=== PATIENT | female | born 1990 ===

== ENCOUNTER 2017-04-13 20:02 | Emergency (ER) | payer BC ==
[2017-04-13 20:14] VITALS: TEMP 98.2
[2017-04-13 20:47] LABS: RBC URINE 20 /hpf (0-3); URINE BILIRUBIN NEGATIVE (NEGATIVE); URINE BLOOD 2+ (NEGATIVE); URINE COLOR Yellow (YELLOW); URINE GLUCOSE (UA) NORMAL (Normal); URINE KETONE NEGATIVE (NEGATIVE); URINE LEUKOCYTE ESTERASE 3+ Leu/uL (Negative); URINE PROTEIN NEGATIVE (NEGATIVE); URINE UROBILINOGEN NORMAL mg/dL (0.2-1.0); WBC URINE 37 /hpf (0-5)
--- NOTE | 2017-04-13 20:48 | C.PDOC ---
History Of Present Illness 26 y/o F at 5 weeks gestation p/w vaginal spotting earlier today. Denies fever, dysuria, pain, vomiting. Has not had US for this . Time Seen by Provider: 04/13/17 20:41 Chief Complaint (Nursing): Female Genitourinary Past Medical History Vital Signs: Last Vital Signs Temp 98.2 F 04/13/17 20:09 Pulse 112 H 04/13/17 20:09 Resp 20 04/13/17 20:09 BP 124/84 04/13/17 20:09 Pulse Ox 100 04/13/17 21:25 Family History: States: No Known Family Hx - Social History Hx Alcohol Use: No Hx Substance Use: No - Immunization History Hx Tetanus Toxoid Vaccination: No Hx Influenza Vaccination: No Hx Pneumococcal Vaccination: No Review Of Systems Except As Marked, All Systems Reviewed And Found Negative. Constitutional: Negative for: Fever Respiratory: Negative for: Shortness of Breath Physical Exam - Physical Exam Additional Physical Exam Comments: Constitutional: No acute distress. Head: Normocephalic. Atraumatic. Eyes: PERRL. EOMI. ENT: Moist mucous membranes. Neck: Supple. Cardiovascular: Regular rate. Radial pulses 2+ bilaterally. Chest: No tenderness. Respiratory: Clear to auscultation bilaterally. GI: Soft. Nontender. Nondistended. Back: No CVA tenderness. Musculoskeletal: No tenderness or swelling of extremities. Skin: No rash. Neurologic: Alert, no focal deficit. ED Course And Treatment - Laboratory Results Result Diagrams: 04/13/17 20:59 04/13/17 20:59 O2 Sat by Pulse Oximetry: 100 Against Medical Advice - AMA Patient Left Against Medical Advice: The patient declines admission to the hospital and wishes to leave the Emergency Department. This action is against my medical advice. This decision was made with informed refusal. The patient was told that admission to the hospital is necessary. Explanation of the reasons why were discussed. The risks of leaving were explained to the patient and include, but are not limited to, worsening of known or currently unknown conditions, permanent disability and from undiagnosed or untreated conditions. The patient has the capacity to make this informed decision and understands my explanation of the current medical problem and risks of leaving. The patient voluntarily accepts these risks and signed an AMA form documenting our conversation. The patient was given the opportunity to ask questions and reconsider. The patient was encouraged to return to the Emergency Department at any time for further care. Medical Decision Making Medical Decision Making: UA shows blood and positive leuks and WBCs. Will start on Macrobid. Patient refused transvaginal US. Transadominal US: FINDINGS: Uterus/cervix: Unremarkable normal in echogenicity and size measuring 7.0 x 4.5 x 5.3 cm. The endometrial stripe measures 19 mm. No myometrial mass. The cervix measures 3 cm , and is closed. Right ovary: Unremarkable in echogenicity and size measuring 2.8 x 2.1 x 2.7 cm. No mass. Normal blood flow. An anechoic focus is detected within the right ovary measuring 16 mm in greatest dimension, statistically a cyst. Left ovary: Unremarkable in echogenicity and size measuring 3.2 x 2.5 x 1.6 cm. No mass. Normal blood flow. Free fluid: No free fluid. Patient refused transvaginal evaluation. IMPRESSION: No intrauterine gestation is detected on the limited transabdominal examination. Simple cyst within the right ovary. Blood type +. Discussed risks of refusing transvaginal US including unknown ectopic and risk of or permanent disability. Patient understood and wishes to refuse and will leave ED. Disposition - Disposition Disposition: AGAINST MEDICAL ADVICE Disposition Time: 23:44 Condition: STABLE Prescriptions: Nitrofurantoin Macrocrystals [Macrobid] 100 mg PO BID #20 cap Instructions: Threatened Miscarriage (ED), Urinary Tract Infection in (ED) Forms: [facility] (Surinamese), (AMA) Informed Refusal - Clinical Impression Clinical Impression: Vaginal bleeding in , UTI in
[2017-04-13 21:13] LABS: BASO # 0.1 K/uL (0.0-0.2); BASO % 0.8 % (0.0-2.0); EOS # 0.2 K/uL (0.0-0.7); EOS % 1.7 % (0.0-4.0); HEMATOCRIT 34.6 % (34.0-47.0); LYMPH % 18.4 % (20.0-40.0); MEAN CELL VOLUME 72.4 fL (81.0-99.0); MEAN CORPUSCULAR HEMOGLOBIN 23.9 pg (27.0-31.0); MEAN PLATELET VOLUME 8.9 fL (7.2-11.7); MONO # 0.8 K/uL (0.0-0.8); MONO % 7.8 % (0.0-10.0); RED CELL DISTRIBUTION WIDTH 18.7 % (11.5-14.5); WHITE BLOOD COUNT 10.7 K/uL (4.8-10.8)
[2017-04-13 21:16] LABS: CHLORIDE 100 mmol/L (98-107)
[2017-04-13 21:17] LABS: RBC URINE 21 /hpf (0-3); URINE BACTERIA FEW (<OCC); URINE BILIRUBIN NEGATIVE (NEGATIVE); URINE BLOOD 2+ (NEGATIVE); URINE COLOR Yellow (YELLOW); URINE GLUCOSE (UA) NORMAL (Normal); URINE KETONE NEGATIVE (NEGATIVE); URINE LEUKOCYTE ESTERASE 2+ Leu/uL (Negative); URINE PROTEIN NEGATIVE (NEGATIVE); URINE UROBILINOGEN NORMAL mg/dL (0.2-1.0); WBC URINE 17 /hpf (0-5)
[2017-04-13 21:17] LABS: POTASSIUM 4.1 mmol/L (3.6-5.2); SODIUM 135 mmol/L (132-148)
[2017-04-13 21:19] LABS: ALB/GLOB RATIO 1.2 (1.0-2.1); AST/SGOT 27 U/L (14-36); BILIRUBIN,TOTAL 0.5 mg/dL (0.2-1.3); BLOOD UREA NITROGEN 11 mg/dL (7-17); CARBON DIOXIDE 21 mmol/L (22-30); GFR AFRICAN-AMERICAN > 60; TOTAL PROTEIN 8.5 g/dL (6.3-8.3)
[2017-04-13 21:20] LABS: ALKALINE PHOSPHATASE 47 U/L (38-126); ALT/SGPT 26 U/L (9-52); CALCIUM 9.5 mg/dl (8.6-10.4); GLUCOSE,RANDOM 84 mg/dL (65-105)
[2017-04-14 00:11] VITALS: BP 128/72; PULSE 81; RESP 18; O2SAT 99
--- NOTE | 2017-04-14 04:06 | US ---
EXAM: US Pelvis Complete, Transabdominal CLINICAL HISTORY: 26 years old, female; Signs and symptoms; Other: Vag spotting; Patient HX: Beta not available; Additional info: Vag bleeding in , assess cervix TECHNIQUE: Real-time transabdominal pelvic ultrasound (complete) with image documentation. COMPARISON: No relevant prior studies available. FINDINGS: Uterus/cervix: Unremarkable normal in echogenicity and size measuring 7.0 x 4.5 x 5.3 cm. The endometrial stripe measures 19 mm. No myometrial mass. The cervix measures 3 cm, and is closed. Right ovary: Unremarkable in echogenicity and size measuring 2.8 x 2.1 x 2.7 cm. No mass. Normal blood flow. An anechoic focus is detected within the right ovary measuring 16 mm in greatest dimension, statistically a cyst. Left ovary: Unremarkable in echogenicity and size measuring 3.2 x 2.5 x 1.6 cm. No mass. Normal blood flow. Free fluid: No free fluid. Patient refused transvaginal evaluation. IMPRESSION: No intrauterine gestation is detected on the limited transabdominal examination. Simple cyst within the right ovary.
== END 2017-04-13 23:55 | disposition left against medical advice (07) ==
LOC: C.ER 20:02
DX: O23.41 Unspecified infection of urinary tract in pregnancy, first trimester (principal); O46.91 Antepartum hemorrhage, unspecified, first trimester; Z3A.01 Less than 8 weeks gestation of pregnancy

== ENCOUNTER 2017-04-27 11:46 | Emergency (ER) | payer BC ==
[2017-04-27 11:52] VITALS: RESP 18; BMI 27.2
[2017-04-27] MEDS ORDERED: Sodium Chloride 0.9% 500 ML IV ONE (12:23)
[2017-04-27 12:52] LABS: BASO % 0.5 % (0.0-2.0); EOS # 0.3 K/uL (0.0-0.7); HEMATOCRIT 34.8 % (34.0-47.0); LYMPH # 1.8 K/uL (1.0-4.3); LYMPH % 17.3 % (20.0-40.0); MEAN CELL VOLUME 74.2 fL (81.0-99.0); MEAN CORPUSCULAR HEMOGLOBIN 24.5 pg (27.0-31.0); MEAN CORPUSCULAR HGB CONC 33.1 g/dL (33.0-37.0); MONO # 0.9 K/uL (0.0-0.8); MONO % 8.3 % (0.0-10.0); RED CELL DISTRIBUTION WIDTH 18.5 % (11.5-14.5); WHITE BLOOD COUNT 10.3 K/uL (4.8-10.8)
[2017-04-27 12:59] LABS: RBC URINE 5 /hpf (0-3); URINE BACTERIA RARE (<OCC); URINE BILIRUBIN NEGATIVE (NEGATIVE); URINE BLOOD 1+ (NEGATIVE); URINE COLOR Straw (YELLOW); URINE GLUCOSE (UA) NORMAL (Normal); URINE KETONE NEGATIVE (NEGATIVE); URINE LEUKOCYTE ESTERASE NEG Leu/uL (Negative); URINE PROTEIN NEGATIVE (NEGATIVE); URINE UROBILINOGEN NORMAL mg/dL (0.2-1.0); WBC URINE 1 /hpf (0-5)
[2017-04-27 13:01] LABS: CHLORIDE 101 mmol/L (98-107); POTASSIUM 3.8 mmol/L (3.6-5.2); SODIUM 134 mmol/L (132-148)
[2017-04-27 13:03] LABS: ALB/GLOB RATIO 1.1 (1.0-2.1); BILIRUBIN,TOTAL 0.4 mg/dL (0.2-1.3); CARBON DIOXIDE 23 mmol/L (22-30); GFR AFRICAN-AMERICAN > 60; TOTAL PROTEIN 8.5 g/dL (6.3-8.3)
[2017-04-27 13:04] LABS: ALKALINE PHOSPHATASE 47 U/L (38-126); ALT/SGPT 30 U/L (9-52); AST/SGOT 21 U/L (14-36); BLOOD UREA NITROGEN 4 mg/dL (7-17); CALCIUM 9.8 mg/dl (8.6-10.4); GLUCOSE,RANDOM 82 mg/dL (65-105)
--- NOTE | 2017-04-27 13:10 | C.PDOC ---
History Of Present Illness 26 year old female A1 7 weeks presents to the ED with complaints of "clear red" vaginal discharge, pelvic pain, and nausea beginning this morning. Pt has similar symptoms last week which she was evaluated for in the ED , no seen and symptoms resolved until today. Patient was seen by catalogue librarian 4 days ago, was diagnosed with Vaginitis and prescribed Flagyl. She denies hematuria, dysuria, fever, back pain, or vomiting. 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 denies: Fever, Chills, Vomiting, Diarrhea, Urinary Symptoms Alleviating Factors: None Recent travel outside of the [place]: No Abnormal Vaginal Bleeding: No : 2 Para: 0 Miscarriage: 1 Past Medical History Reviewed: Historical Data, Nursing Documentation, Vital Signs Vital Signs: Last Vital Signs Temp 98 F 04/27/17 14:41 Pulse 88 04/27/17 14:41 Resp 18 04/27/17 14:41 BP 132/84 04/27/17 14:41 Pulse Ox 98 04/27/17 14:41 Family History: States: Unknown Family Hx - Social History Hx Alcohol Use: No Hx Substance Use: No - Immunization History Hx Tetanus Toxoid Vaccination: No Hx Influenza Vaccination: No Hx Pneumococcal Vaccination: No Review Of Systems Constitutional: Negative for: Fever, Chills Gastrointestinal: Positive for: Nausea. Negative for: Vomiting, Diarrhea Genitourinary: Positive for: Vaginal Discharge, Pelvic Pain. Negative for: Dysuria, Hematuria Physical Exam - Physical Exam Appears: Non-toxic, No Acute Distress Skin: Warm, Dry Head: Atraumatic, Normacephalic Eye(s): bilateral: Normal Inspection, EOMI Oral Mucosa: Moist Neck: Normal ROM, Supple Chest: Symmetrical Cardiovascular: Rhythm Regular Respiratory: No Rales, No Rhonchi, No Wheezing, Other (Clear to auscultation bilaterally ) Gastrointestinal/Abdominal: Soft, No Tenderness, No Distention, No Guarding, No Rebound Pelvic: Vaginal Discharge (yellow clear discharge ), No Cervical Motion Tenderness, No Adnexal Tenderness Extremity: Normal ROM, No Tenderness Neurological/Psych: Oriented x3, Normal Speech ED Course And Treatment - Laboratory Results Result Diagrams: 04/27/17 12:46 04/27/17 12:46 O2 Sat by Pulse Oximetry: 100 (RA) - CT Scan/US Transvaginal US Other Rad Studies (CT/US): Read By Radiologist, Radiology Report Reviewed CT/US Interpretation: Findings: Uterus: 10.7 x 5.7 x 7.5 centimeters. Anteverted. Heterogeneous echotexture. Cervix measures 3.6 centimeters. Intrauterine with intrauterine gestational sac measuring 2.7 centimeters corresponding to a gestational age of 7 weeks and 3 days. Yolk sac measures 2.2 millimeters. An[place]-rump length measures 1.1 centimeters corresponding to a gestational age of 7 weeks and 1 day. heart rate of 128 beats per minute. No free fluid in the pelvic cul-de-sac. Right ovary: 3.2 x 2.7 x 3.5 centimeters. Normal flow. Left ovary: 3.6 x 1.6 x 3.3 centimeters. Normal flow. Impression: Intrauterine corresponding to a gestational age of approximately 7 weeks and 1 day with crown-rump length of 1.1 centimeters. heart rate of 128 beats per minute. Limited 1st trimester ultrasound for viability purposes only. Continued interval followup with serial ultrasound, serial hCG levels, and gynecological consultation would be helpful if clinically indicated. Progress Note: Labs and transvaginal US were ordered. Patient was given IV fluids. Upon re-evaluation, results were communicated to patient and she was given a copy. Patient instructed to follow up with ANALOG DEVICE DESIGNER in scheduled appointment in two days. Disposition - Disposition Disposition: HOME/ ROUTINE Disposition Time: 14:24 Condition: STABLE Additional Instructions: Vaya a trammell mdico o la clnica en 2-5 lakhani sin falta, para mas evaluacin. [place]heim los medicamentos tian indicado. Volver a la yasir de emergencia en cualquier momento si los sntomas persisten o empeoran. Instructions: (ED) Forms: [employer] (Danish) - Clinical Impression Clinical Impression: First trimester bleeding - PA / PERCUSSION TEACHER / Resident Statement MD/DO has reviewed & agrees with the documentation as recorded. - Scribe Statement The provider has reviewed the documentation as recorded by the Scribe Yulissa Page All medical record entries made by the Scribe were at my direction and personally dictated by me. I have reviewed the chart and agree that the record accurately reflects my personal performance of the history, physical exam, medical decision making, and the department course for this patient. I have also personally directed, reviewed, and agree with the discharge instructions and disposition.
--- NOTE | 2017-04-27 14:17 | US ---
Pelvic ultrasound History: Pelvic pain. Comparison: None available. Technique: Real-time sonography was performed through the pelvis utilizing transabdominal technique. Findings: Uterus: 10.7 x 5.7 x 7.5 centimeters. Anteverted. Heterogeneous echotexture. Cervix measures 3.6 centimeters. Intrauterine with intrauterine gestational sac measuring 2.7 centimeters corresponding to a gestational age of 7 weeks and 3 days. Yolk sac measures 2.2 millimeters. [place]-rump length measures 1.1 centimeters corresponding to a gestational age of 7 weeks and 1 day. heart rate of 128 beats per minute. No free fluid in the pelvic cul-de-sac. Right ovary: 3.2 x 2.7 x 3.5 centimeters. Normal flow. Left ovary: 3.6 x 1.6 x 3.3 centimeters. Normal flow. Impression: Intrauterine corresponding to a gestational age of approximately 7 weeks and 1 day with crown-rump length of 1.1 centimeters. heart rate of 128 beats per minute. Limited 1st trimester ultrasound for viability purposes only. Continued interval followup with serial ultrasound, serial hCG levels, and gynecological consultation would be helpful if clinically indicated.
[2017-04-27 14:42] VITALS: BP 132/84; PULSE 88; TEMP 98
[2017-04-27 15:32] VITALS: O2SAT 100
== END 2017-04-27 14:42 | disposition home or self-care (01) ==
LOC: C.ER 11:46
DX: O20.9 Hemorrhage in early pregnancy, unspecified (principal); Z3A.01 Less than 8 weeks gestation of pregnancy

== ENCOUNTER 2017-06-12 16:59 | Emergency (ER) | payer BC ==
[2017-06-12 17:00] VITALS: BMI 27.2
[2017-06-12 17:26] VITALS: RESP 16; TEMP 98
[2017-06-12 18:20] LABS: RBC URINE 2 /hpf (0-3); URINE BACTERIA FEW (<OCC); URINE BILIRUBIN NEGATIVE (NEGATIVE); URINE BLOOD NEGATIVE (NEGATIVE); URINE COLOR Yellow (YELLOW); URINE GLUCOSE (UA) NORMAL (Normal); URINE KETONE NEGATIVE (NEGATIVE); URINE LEUKOCYTE ESTERASE 2+ Leu/uL (Negative); URINE PROTEIN NEGATIVE (NEGATIVE); URINE UROBILINOGEN NORMAL mg/dL (0.2-1.0); WBC URINE 24 /hpf (0-5)
--- NOTE | 2017-06-12 18:23 | C.PDOC ---
History Of Present Illness 26 y/o female with PMHx of Chlamydia presents to ED with complaints of yellow vaginal discharge and pain after urinating fro 2 days. Patient is currently 14 weeks and denies abdominal pain, diarrhea, vaginal bleeding or any other complaints at this time. LMP 03/06/17. pt told she had bv at beginning of with unclear tx. Time Seen by Provider: 06/12/17 18:19 Chief Complaint (Nursing): Female Genitourinary History Per: Patient History/Exam Limitations: no limitations Onset/Duration Of Symptoms: Days Current Symptoms Are (Timing): Still Present Past Medical History Reviewed: Historical Data, Nursing Documentation, Vital Signs Vital Signs: Last Vital Signs Temp 98 F 06/12/17 17:23 Pulse 91 H 06/12/17 17:23 Resp 16 06/12/17 17:23 BP 110/70 06/12/17 17:23 Pulse Ox 99 06/12/17 18:52 - Medical History PMH: No Chronic Diseases Surgical History: No Surg Hx Family History: States: No Known Family Hx - Social History Hx Alcohol Use: No Hx Substance Use: No - Immunization History Hx Tetanus Toxoid Vaccination: No Hx Influenza Vaccination: No Hx Pneumococcal Vaccination: No Review Of Systems Constitutional: Negative for: Fever, Chills Gastrointestinal: Negative for: Nausea, Vomiting, Abdominal Pain Genitourinary: Positive for: Vaginal Discharge. Negative for: Dysuria, Hematuria, Vaginal Bleeding Skin: Negative for: Rash Physical Exam - Physical Exam Appears: Non-toxic, No Acute Distress Skin: Normal Color, Warm, Dry, No Rash Head: Atraumatic, Normacephalic Eye(s): bilateral: Normal Inspection Oral Mucosa: Moist Neck: Normal ROM, Supple Cardiovascular: Rhythm Regular Respiratory: Normal Breath Sounds, No Rales, No Rhonchi, No Wheezing Gastrointestinal/Abdominal: Soft, No Tenderness, No Guarding, No Rebound Pelvic: No Vaginal Bleeding, Vaginal Discharge (Large amount of yellow), No Cervical Motion Tenderness, No Adnexal Tenderness Neurological/Psych: Oriented x3 ED Course And Treatment O2 Sat by Pulse Oximetry: 99 (RA) Pulse Ox Interpretation: Normal Medical Decision Making Medical Decision Making: pt with yellowish vaginal d/c, swabbed for gc/chlamydia nd genital culture, no ab pain, no vag bleeding., no cmt or adnexal tenderness on exam. +2 le in urine , will tx for uti, f.u clinic andrew to follow cultures Disposition Counseled Patient/Family Regarding: Studies Performed, Diagnosis, Need For Followup, Rx Given - Disposition Referrals: [facility] [Outside] Disposition: HOME/ ROUTINE Disposition Time: 19:01 Condition: STABLE Additional Instructions: Por favor, david un seguimiento en la clnica de ginecologa de [place] vidales pronto tian sea posible para hacer un seguimiento de las culturas. Meckling antibi ticos para las infecciones de orina segn lo prescrito. Regrese a la yasir de emergencias por cualquier sntoma peor, dolor abdominal o sangrado vaginal. Prescriptions: Nitrofurantoin Macrocrystals [Macrobid] 100 mg PO BID #14 cap Instructions: Vaginitis (ED), Urinary Tract Infection in Women (ED) Forms: Gen Discharge Inst Russian, [employer] [facility] (Russian) - Clinical Impression Clinical Impression: UTI in , Vaginitis - PA / COUNSELOR MANAGER / Resident Statement MD/DO has reviewed & agrees with the documentation as recorded. - Scribe Statement The provider has reviewed the documentation as recorded by the Janis Bautista All medical record entries made by the Andreyibabdelrahman were at my direction and personally dictated by me. I have reviewed the chart and agree that the record accurately reflects my personal performance of the history, physical exam, medical decision making, and the department course for this patient. I have also personally directed, reviewed, and agree with the discharge instructions and disposition.
[2017-06-12 19:22] VITALS: BP 115/74; PULSE 84; O2SAT 100
== END 2017-06-12 19:21 | disposition home or self-care (01) ==
LOC: C.ER 16:59
DX: O23.42 Unspecified infection of urinary tract in pregnancy, second trimester (principal); O23.592 Infection of other part of genital tract in pregnancy, second trimester; Z3A.14 14 weeks gestation of pregnancy

== ENCOUNTER 2017-09-06 20:44 | Emergency (ER) | payer BC, MEDICAID ==
[2017-09-06] MEDS ORDERED: Lactated Ringer's 1,000 ML IV ONE (21:19)
--- NOTE | 2017-09-06 21:27 | OBHP ---
Datetime: 09/06/2017 21:20 IP Adm Impression: , intrauterine Admit Comment, IP Provider: @ 26.2 wks GA reports s/p fall at work at 18:00 landing on right back. pt dnies any direct abdominal trauma, ctx, lof, vb, +FM. pt deise any lightheadns, ddiyznzes, cp, sob. 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 FHX: non contriubotyr MEDS: PNV, About to strt Ferrous sulfate 325mg daily ALLERYG: Shirmp, nkda SHX ;negiatve etoh/tobacc/drugs A/P @ 26.2 wks ga s/p Fall -abruption labs: CBC, PT/INR, Fibrinogen, Type and screen -Bedside sonogram, VTX, anteiror placenta MVP 5cm, no evidnce of retroplacental clot or hemorrhage -EFM/[place] observation Pelvic Type - PN: Adequate Extremities - PN: Normal Abdomen - PN: Normal Back - PN: Normal Breast - PN: Not Done Lungs - PN: Normal Heart - PN: Normal Thyroid - PN: Not Done Neurologic - PN: Normal HEENT - PN: Normal General - PN: Normal Presentation-Admit: Vertex FHR - Baseline A Provider: 145 Membranes, Provider: Intact Comments, ACOG Physical Exam: GEN NAD AAO x 3 RESP: CBA?L CVS RRR, +S1/S2 ABD: soft, gravid, no plaabple ctx, non tender, no guaridng, no rebound tenders no rigity BACK No CVA b/l, no evidence of ecchymosis, non TTP Ext: Non tende,r negaitve homans sign, no calf tendnerss Gestation - Est Wks by US: 26.2 EGA AdmitDate IP: 26.2 Vital Signs Provider: Reviewed IP Chief Complaint: Trauma/Fall NICHD Variability Prov Fetus A: Moderate 6-25bpm FHR Category Provider Fetus A: Category I NICHD Decel Fetus A IP Provider: None Dilatation, Provider: 0 Genitourinary Exam: Normal DTRs - PN: Normal
[2017-09-06 21:42] LABS: BASO % 0.4 % (0.0-2.0); EOS # 0.1 K/uL (0.0-0.7); EOS % 1.3 % (0.0-4.0); HEMOGLOBIN 10.9 g/dL (11.0-16.0); LYMPH # 1.6 K/uL (1.0-4.3); LYMPH % 16.1 % (20.0-40.0); MEAN CELL VOLUME 84.6 fL (81.0-99.0); MEAN CORPUSCULAR HEMOGLOBIN 29.4 pg (27.0-31.0); MEAN CORPUSCULAR HGB CONC 34.7 g/dL (33.0-37.0); MEAN PLATELET VOLUME 8.5 fL (7.2-11.7); MONO # 0.8 K/uL (0.0-0.8); MONO % 7.9 % (0.0-10.0); NEUT # 7.3 K/uL (1.8-7.0); NEUT % 74.3 % (50.0-75.0); RBC 3.73 Mil/uL (3.80-5.20); RED CELL DISTRIBUTION WIDTH 13.1 % (11.5-14.5); WHITE BLOOD COUNT 9.8 K/uL (4.8-10.8)
[2017-09-06 21:50] LABS: INR 0.9; PROTHROMBIN TIME 10.7 SECONDS (9.7-12.2)
[2017-09-06 21:54] LABS: SQUAMOUS EPITHIAL 6 /hpf (0-5); URINE BACTERIA RARE (<OCC); URINE BILIRUBIN NEGATIVE (NEGATIVE); URINE BLOOD NEGATIVE (NEGATIVE); URINE CLARITY Hazy (Clear); URINE COLOR Yellow (YELLOW); URINE GLUCOSE (UA) NORMAL (Normal); URINE LEUKOCYTE ESTERASE NEG Leu/uL (Negative); URINE NITRATE NEGATIVE (NEGATIVE); URINE PROTEIN NEGATIVE (NEGATIVE); URINE UROBILINOGEN NORMAL mg/dL (0.2-1.0)
[2017-09-07 03:31] VITALS: BP 116/61; PULSE 82; RESP 20; TEMP 98
== END 2017-09-06 23:20 | disposition home or self-care (01) ==
LOC: C.EROB 20:44
DX: O9A.212 Injury, poisoning and certain other consequences of external causes complicating pregnancy, second trimester (principal); Z3A.26 26 weeks gestation of pregnancy
CPT/HCPCS: 81001; 85025; 85384; 85610; 85730; 86850; 86900; 96360; 99283; J7120

== ENCOUNTER 2017-11-27 08:33 | Emergency (ER) | payer BC, MEDICAID ==
[2017-11-27 14:28] VITALS: BP 134/91; PULSE 75; RESP 18; TEMP 97.2; O2SAT 99
== END 2017-11-27 10:20 | disposition home or self-care (01) ==
LOC: C.EROB 08:33
DX: O26.893 Other specified pregnancy related conditions, third trimester (principal); Z3A.38 38 weeks gestation of pregnancy